=== PATIENT | female | born 1980 | race Caucasian/White ===

== ENCOUNTER 2016-09-08 16:45 | Emergency (ER) | payer MEDICAID, MEDICARE ==
[~2016-09-08] VITALS: Ht 165.1 cm; Wt 120.0 kg
[2016-09-08] MEDS ORDERED: HEPARIN (16:53)
[2016-09-08] MEDS ORDERED: METHYLPREDNISOLONE SOD SUCC 125 MG/2 ML VIAL IV STA (17:27)
[2016-09-08] MEDS ORDERED: ALBUTEROL (0.083%) 2.5MG/3ML NEB HHN STA (17:27)
[2016-09-08] MEDS ORDERED: FAMOTIDINE 20MG/2ML VIAL IV ONE (17:30)
[2016-09-08] MEDS ORDERED: DIPHENHYDRAMINE 50MG/ML VIAL IV ONE (17:30)
[2016-09-08] MEDS ORDERED: EPINEPHRINE 1:1000 1 MG/ML AMP INJ ONE (17:30)
[2016-09-08] MEDS ORDERED: LORAZEPAM 2MG/ML CPJ IV ONE (17:30)
[2016-09-08 19:30] VITALS: BP 128/78
[2016-09-08 20:08] LABS: CLARITY URINE CLEAR (CLEAR); COLOR URINE YELLOW (YELLOW); GLUCOSE URINE NEGATIVE (NEGATIVE); KETONES URINE NEGATIVE (NEGATIVE); LEUKOCYTE ESTERASE URINE NEGATIVE (NEGATIVE); NITRITE URINE NEGATIVE (NEGATIVE); OCCULT BLOOD URINE NEGATIVE (NEGATIVE); PH URINE 7.5 (4.5-8.0); PROTEIN URINE NEGATIVE (NEGATIVE); SPECIFIC GRAVITY URINE 1.005 (1.005-1.030); UROBILINOGEN URINE 0.2 E.U./dL (0.2-1.0)
== END 2016-09-08 20:20 | disposition left against medical advice (07) ==
LOC: ER 18:37 → CANBEDREQ 23:11
DX: T88.6XXA Anaphylactic reaction due to adverse effect of correct drug or medicament properly administered, initial encounter (principal); T49.0X5A Adverse effect of local antifungal, anti-infective and anti-inflammatory drugs, initial encounter; K50.90 Crohn's disease, unspecified, without complications; Z88.0 Allergy status to penicillin; Z88.2 Allergy status to sulfonamides; Z88.8 Allergy status to other drugs, medicaments and biological substances; Z88.6 Allergy status to analgesic agent; Z91.040 Latex allergy status; Y92.89 Other specified places as the place of occurrence of the external cause
CPT/HCPCS: 81003; 93005; 94640; 96374; 96375; 99285; J0171; J1200; J2060; J2930; J3490; J7611; 99284

== ENCOUNTER 2017-07-05 23:19 | Emergency (ER) | payer MEDICARE ==
[~2017-07-05] VITALS: Ht 162.6 cm; Wt 90.0 kg
[~2017-07-05 23:19] MED LIST: HEPARIN
[2017-07-06] MEDS ORDERED: PROCHLORPERAZINE 10MG/2ML VIAL IV ONE (05:45)
[2017-07-06] MEDS ORDERED: HYDROCODONE/ACETAMINOPHEN 5/325MG TABLET PO ONE (05:45)
[2017-07-06 06:20] VITALS: BP 115/76
== END 2017-07-06 06:22 | disposition home or self-care (01) ==
LOC: ER 23:19
DX: T44.0X1A Poisoning by anticholinesterase agents, accidental (unintentional), initial encounter (principal); F84.5 Asperger's syndrome; R10.9 Unspecified abdominal pain; M79.7 Fibromyalgia; F32.9 Major depressive disorder, single episode, unspecified; D84.9 Immunodeficiency, unspecified; Z93.3 Colostomy status; Z90.49 Acquired absence of other specified parts of digestive tract; Z88.0 Allergy status to penicillin; Z88.2 Allergy status to sulfonamides; Y92.9 Unspecified place or not applicable
CPT/HCPCS: 81025; 93005; 96374; 99284; J0780

== ENCOUNTER 2017-12-29 18:59 | Emergency (ER) | payer MEDICARE ==
[~2017-12-29] VITALS: Ht 170.2 cm; Wt 91.0 kg
[2017-12-29 19:00] VITALS: BP 111/72
== END 2017-12-29 19:25 | disposition left against medical advice (07) ==
LOC: ER 19:18
DX: M25.562 Pain in left knee (principal); M25.561 Pain in right knee; Z53.21 Procedure and treatment not carried out due to patient leaving prior to being seen by health care provider

== ENCOUNTER 2018-02-20 01:35 | Emergency (ER) | payer MEDICARE ==
[~2018-02-20] VITALS: Ht 165.1 cm; Wt 114.0 kg
[2018-02-20] MEDS ORDERED: DIPHENHYDRAMINE 50MG CAPSULE PO ONE (02:00)
[2018-02-20 02:15] VITALS: BP 155/104
[2018-02-20] MEDS ORDERED: FAMOTIDINE 20MG/2ML VIAL IV ONE (03:15)
== END 2018-02-20 03:41 | disposition home or self-care (01) ==
LOC: ER 01:35
DX: T78.49XA Other allergy, initial encounter (principal); I10 Essential (primary) hypertension; X58.XXXA Exposure to other specified factors, initial encounter; Z98.890 Other specified postprocedural states; Z88.0 Allergy status to penicillin; Z88.2 Allergy status to sulfonamides; Z88.8 Allergy status to other drugs, medicaments and biological substances; Z88.1 Allergy status to other antibiotic agents; Z91.041 Radiographic dye allergy status; Z91.040 Latex allergy status
CPT/HCPCS: 99283; J3490; Q0163

== ENCOUNTER 2018-12-06 04:13 | Emergency (ER) | payer MEDICARE, MEDICAID ==
[~2018-12-06] VITALS: Ht 172.7 cm; Wt 82.0 kg
[~2018-12-06 04:13] MED LIST changes: +ALPR2TAB2 PO; +B50 GT; +CHOL500063 PO; +DULO60CA44 PO; +GABA800T PO; +HYDR4TAB4 PO; +KEPPSOL GT; +METH500T PO; +METO-293 PO; +OXYC-610 PO; +PHEN20EL MT; +POTA20TA82 PO; +TH50 GT; +TOP100 PO; +TRAZ-213 PO; +[UNRECOGNIZED DRUG - CODE] GT
[2018-12-06 05:56] LABS: BASOPHILS % 1.1 % (0.0-2.0); HEMATOCRIT. 35.7 % (36.0-48.0); HEMOGLOBIN. 12.1 g/dL (12.0-16.0); LYMPHOCYTES % 22.8 % (20.0-50.0); MEAN CORPUSCULAR HEMOGLOBIN 29.9 pg (28.0-32.0); MEAN CORPUSCULAR VOLUME 88.3 fL (81.0-99.0); MEAN PLATELET VOLUME 7.1 fl (7.4-10.4); MONOCYTES % 9.6 % (2.0-8.0); NEUTROPHILS % 62.5 % (40.0-76.0); PLATELET 483 x1000/uL (130-400); RED BLOOD CELL COUNT 4.04 mill/uL (4.2-5.4); RED CELL DISTRIBUTION WIDTH 13.6 % (11.6-14.6)
[2018-12-06 05:59] LABS: CHLORIDE 106 mEq/L (98-107)
[2018-12-06 06:14] LABS: CLARITY URINE CLOUDY (CLEAR); COLOR URINE YELLOW (YELLOW); KETONES URINE NEGATIVE (NEGATIVE); LEUKOCYTE ESTERASE URINE 1+ (NEGATIVE); NITRITE URINE NEGATIVE (NEGATIVE); OCCULT BLOOD URINE NEGATIVE (NEGATIVE); PH URINE 5.5 (4.5-8.0); PROTEIN URINE NEGATIVE (NEGATIVE); UROBILINOGEN URINE 0.2 E.U./dL (0.2-1.0)
[2018-12-06] MEDS ORDERED: SODIUM CHLORIDE 0.9% 1,000 ML IV ONE ×2 (06:34→08:27)
[2018-12-06] MEDS ORDERED: ONDANSETRON HCL 4MG/2ML INJ IV STA (06:34)
[2018-12-06] MEDS ORDERED: CEFTRIAXONE 1 G PREMIX 50 ML IV ONE (06:45)
[2018-12-06] MEDS ORDERED: METOCLOPRAMIDE HCL 10MG/2ML VIAL IV ONE (06:45)
[2018-12-06] MEDS ORDERED: LEVOFLOXACIN 500MG PREMIX 100 ML IV ONE (07:00)
[2018-12-06] MEDS ORDERED: DIPHENHYDRAMINE 50MG/ML VIAL IV ONE (08:00)
[2018-12-06] MEDS ORDERED: MORPHINE SULFATE 4 MG/ML CPJ (NOT FOR IM USE) IV STA (08:27)
[2018-12-06 09:09] LABS: HCG SCREEN NEGATIVE
[2018-12-06 11:11] VITALS: BP 128/72
== END 2018-12-06 11:13 | disposition left against medical advice (07) ==
LOC: ER 04:13 → CANRESERV 07:45 → ENRESERV 07:45 → CANBEDREQ 08:15 → ER 11:13
DX: K62.5 Hemorrhage of anus and rectum (principal); N39.0 Urinary tract infection, site not specified; R10.32 Left lower quadrant pain; F32.9 Major depressive disorder, single episode, unspecified; E11.9 Type 2 diabetes mellitus without complications; I10 Essential (primary) hypertension; G40.909 Epilepsy, unspecified, not intractable, without status epilepticus; K50.90 Crohn's disease, unspecified, without complications; Z88.2 Allergy status to sulfonamides; Z91.041 Radiographic dye allergy status; Z91.040 Latex allergy status; Z93.2 Ileostomy status; Z88.8 Allergy status to other drugs, medicaments and biological substances
CPT/HCPCS: 36415; 71045; 74018; 80053; 81003; 81025; 83690; 84703; 85025; 86850; 86900; 86901; 87086; 96361; 96365; 96375; 99284; J1200; J1956; J2270; J2765; J7030

== ENCOUNTER 2019-04-14 03:06 | Emergency (ER) | payer MEDICARE, MEDICAID ==
[~2019-04-14] VITALS: Ht 177.8 cm; Wt 105.0 kg
[~2019-04-14 03:06] MED LIST changes: -TRAZ-213 PO; +TRAZ-252 PO
[2019-04-14] MEDS ORDERED: OLANZAPINE 10 MG/VIAL IM ONE (04:15)
[2019-04-14] MEDS ORDERED: LORAZEPAM 2MG/ML CPJ IV ONE ×2 (04:15→07:00)
[2019-04-14] MEDS ORDERED: DIPHENHYDRAMINE 50MG/ML VIAL IV ONE ×2 (04:15→14:45)
[2019-04-14] MEDS ORDERED: SODIUM CHLORIDE 0.9% 1,000 ML IV ONE (04:24)
[2019-04-14 06:01] LABS: BASOPHILS % 0.9 % (0.0-2.0); EOSINOPHILS % 5.4 % (0.0-5.0); HEMATOCRIT. 34.7 % (36.0-48.0); HEMOGLOBIN. 11.6 g/dL (12.0-16.0); LYMPHOCYTES % 32.7 % (20.0-50.0); MEAN CORPUSCULAR HEMOGLOBIN 28.4 pg (28.0-32.0); MEAN CORPUSCULAR VOLUME 85.1 fL (81.0-99.0); MEAN PLATELET VOLUME 6.3 fl (7.4-10.4); MONOCYTES % 11.5 % (2.0-8.0); NEUTROPHILS % 49.5 % (40.0-76.0); PLATELET 453 x1000/uL (130-400); RED BLOOD CELL COUNT 4.08 mill/uL (4.2-5.4); RED CELL DISTRIBUTION WIDTH 16.6 % (11.6-14.6)
[2019-04-14 06:09] LABS: CHLORIDE 107 mEq/L (98-107)
[2019-04-14 06:13] LABS: ETHANOL BLOOD < 10 mg/dL
[2019-04-14 06:18] LABS: CREATINE KINASE 75 IU/L (26-192)
[2019-04-14 06:22] LABS: HCG SCREEN NEGATIVE
[2019-04-14] MEDS ORDERED: LORAZEPAM 1MG TABLET PO ONE (11:45)
[2019-04-14] MEDS ORDERED: DIPHENHYDRAMINE 50MG CAPSULE PO ONE (11:45)
[2019-04-14 16:51] VITALS: BP 102/76
== END 2019-04-14 16:53 | disposition home or self-care (01) ==
LOC: ER 03:06
DX: G93.40 Encephalopathy, unspecified (principal); R45.851 Suicidal ideations; E86.0 Dehydration; F31.9 Bipolar disorder, unspecified; Z98.890 Other specified postprocedural states; Z79.899 Other long term (current) drug therapy; Z88.2 Allergy status to sulfonamides; Z88.0 Allergy status to penicillin; Z91.040 Latex allergy status; Z88.5 Allergy status to narcotic agent; Z88.1 Allergy status to other antibiotic agents; Z88.8 Allergy status to other drugs, medicaments and biological substances
CPT/HCPCS: 36415; 80053; 80307; 80320; 80329; 82140; 82550; 84443; 84703; 85025; 93005; 96361; 96372; 96374; 96375; 96376; 99284; J1200; J2060; J3490; J7030; Q0163; G0480

== ENCOUNTER 2019-04-25 16:11 | Emergency (ER) | payer MEDICARE, MEDICAID ==
[~2019-04-25] VITALS: Ht 165.1 cm; Wt 100.0 kg
[2019-04-25] MEDS ORDERED: SODIUM CHLORIDE 0.9% 1,000 ML IV ONE (17:26)
[2019-04-25] MEDS ORDERED: MORPHINE SULFATE 4 MG/ML CPJ (NOT FOR IM USE) IV STA (17:26)
[2019-04-25] MEDS ORDERED: METOCLOPRAMIDE HCL 10MG/2ML VIAL IV ONE (17:30)
[2019-04-25] MEDS ORDERED: DIPHENHYDRAMINE 50MG/ML VIAL IV ONE ×2 (17:30→22:45)
[2019-04-25 19:09] LABS: CHLORIDE 108 mEq/L (98-107)
[2019-04-25 19:10] LABS: BASOPHILS % 1.1 % (0.0-2.0); EOSINOPHILS % 1.8 % (0.0-5.0); HEMATOCRIT. 31.7 % (36.0-48.0); HEMOGLOBIN. 10.7 g/dL (12.0-16.0); LYMPHOCYTES % 28.1 % (20.0-50.0); MEAN CORPUSCULAR HEMOGLOBIN 28.6 pg (28.0-32.0); MEAN CORPUSCULAR VOLUME 84.6 fL (81.0-99.0); MEAN PLATELET VOLUME 6.5 fl (7.4-10.4); MONOCYTES % 9.6 % (2.0-8.0); NEUTROPHILS % 59.4 % (40.0-76.0); PLATELET 525 x1000/uL (130-400); RED BLOOD CELL COUNT 3.75 mill/uL (4.2-5.4); RED CELL DISTRIBUTION WIDTH 16.7 % (11.6-14.6)
[2019-04-25 19:11] LABS: HCG SCREEN NEGATIVE
[2019-04-25 19:12] LABS: PARTIAL THROMBOPLASTIN TIME 27.1 sec (23.4-31.0); PROTHROMBIN TIME 10.1 sec (9.6-11.0)
[2019-04-25] MEDS ORDERED: MORPHINE SULFATE 4 MG/ML CPJ (NOT FOR IM USE) IV ONE (19:30)
[2019-04-25 19:44] LABS: CLARITY URINE TURBID (CLEAR); COLOR URINE YELLOW (YELLOW); KETONES URINE NEGATIVE (NEGATIVE); LEUKOCYTE ESTERASE URINE 1+ (NEGATIVE); NITRITE URINE NEGATIVE (NEGATIVE); OCCULT BLOOD URINE 2+ (NEGATIVE); PROTEIN URINE TRACE (NEGATIVE); SPECIFIC GRAVITY URINE 1.027 (1.005-1.030); UROBILINOGEN URINE 0.2 E.U./dL (0.2-1.0)
[2019-04-25] MEDS ORDERED: FLUCONAZOLE 50MG TABLET PO ONE (21:00)
[2019-04-25] MEDS ORDERED: LEVOFLOXACIN 750MG PREMIX 150 ML IV ONE (21:00)
[2019-04-25 22:45] VITALS: BP 105/75
== END 2019-04-25 23:47 | disposition home or self-care (01) ==
LOC: ER 16:16
DX: R10.84 Generalized abdominal pain (principal); N39.0 Urinary tract infection, site not specified; K62.5 Hemorrhage of anus and rectum; K50.90 Crohn's disease, unspecified, without complications; F31.9 Bipolar disorder, unspecified; F43.10 Post-traumatic stress disorder, unspecified; Z93.2 Ileostomy status; Z88.8 Allergy status to other drugs, medicaments and biological substances; Z88.0 Allergy status to penicillin; Z88.2 Allergy status to sulfonamides; Z91.040 Latex allergy status
CPT/HCPCS: 36415; 71045; 74176; 80053; 81003; 81025; 83690; 84703; 85025; 85610; 85730; 86850; 86900; 86901; 93005; 96365; 96375; 96376; 99284; J1200; J1956; J2270; J2765; J7030